=== PATIENT | female | born 1955 | race Caucasian/White ===

== ENCOUNTER → 2016-06-20 | Outpatient (CLI) | payer BC ==
[~2016-06-20] MED LIST: ADVIL200 MG PO; ALEVE 220MG220 MG PO; ESTRACE 1MG1 MG/TAB PO; ESTROGENS0.625 MG PO; EXCEDRIN TENSIO1 TAB PO; NO HOME MEDICATIONS; PROMETHAZINE12.5 M5 PO; ULTRAM 50MG TAB50 MG PO; VITAMIN D 1001000 IU PO
== END ==
LOC: MC.RAD 10:20
DX: Z12.31 Encounter for screening mammogram for malignant neoplasm of breast (principal)

== ENCOUNTER 2016-09-30 07:22 | Day surgery (SDC) | payer BC ==
[~2016-09-30] VITALS: Ht 180.3 cm; Wt 68.8 kg
[2016-09-30] VITALS (17 sets, daily range): BP systolic 89–137; BP diastolic 59–104; PULSE 16–70; TEMP 97.6
[~2016-09-30 07:22] MED LIST changes: -ADVIL200 MG PO; -EXCEDRIN TENSIO1 TAB PO; -VITAMIN D 1001000 IU PO
[2016-09-30] MEDS ORDERED: VITAMIN D 1001000 IU PO (08:08)
[2016-09-30] MEDS ORDERED: EXCEDRIN TENSIO1 TAB PO (08:09)
[2016-09-30] MEDS ORDERED: ADVIL200 MG PO (08:10)
== END 2016-09-30 16:40 | disposition home or self-care (01) ==
LOC: SDCO 07:22
DX: K21.9 Gastro-esophageal reflux disease without esophagitis (principal); K25.7 Chronic gastric ulcer without hemorrhage or perforation; K44.9 Diaphragmatic hernia without obstruction or gangrene; D64.9 Anemia, unspecified; K29.30 Chronic superficial gastritis without bleeding; Z90.710 Acquired absence of both cervix and uterus; Z80.0 Family history of malignant neoplasm of digestive organs; Z83.71 Family history of colonic polyps
CPT/HCPCS: OP; J2250; J2405; J2550; J3010; J7030

== ENCOUNTER 2017-09-19 10:56 | Emergency (ER) | payer BC ==
[~2017-09-19] VITALS: Ht 175.3 cm; Wt 68.2 kg
[~2017-09-19 10:56] MED LIST changes: +ADVIL200 MG PO; +EXCEDRIN TENSIO1 TAB PO; +VITAMIN D 1001000 IU PO
[2017-09-19 11:01] VITALS: TEMP 97.5
[2017-09-19 11:30] LABS: BASO # 0.1 (0.0-0.2); BASO % 0.8 % (0.0-2.0); EOS # 0.1 (0.0-0.7); EOS % 0.9 % (0-4.0); GRAN # 5.6 (1.4-6.5); GRAN % 73.4 % (42.2-75.2); HEMATOCRIT 42.8 % (37.0-47.0); HEMOGLOBIN 14.5 g/dl (12.5-16.0); LYMPH # 1.4 (1.2-3.4); LYMPH % 18.4 % (20.0-51.0); MEAN CELL VOLUME 86 fl (80.0-100.0); MEAN CORPUSCULAR HEMOGLOBIN 29 pg (27.0-31.0); MEAN CORPUSCULAR HGB CONC 34 g/dl (33.0-37.0); MEAN PLATELET VOLUME 9.4 fl (7.4-10.4); MONO # 0.4 (0.1-0.6); MONO % 5.8 % (1.7-9.3); PLATELET COUNT 294 K/mm3 (130-400); RED BLOOD COUNT 4.98 M/mm3 (4.10-5.30); REDCELL DISTRIBUTION WIDTH-CV 12.9 % (11.5-14.5)
[2017-09-19 11:37] LABS: ALBUMIN 4.2 gm/dL (3.5-5.0); BILIRUBIN,TOTAL 0.8 mg/dL (0.0-1.0); CALCIUM 9.8 mg/dL (8.4-10.2); CREATININE, serum 0.85 mg/dL (0.52-1.25); POTASSIUM 3.8 mmol/L (3.4-5.0); TOTAL PROTEIN 8.1 gm/dL (6.4-8.2)
[2017-09-19] MEDS ORDERED: ANTIVERT 25MG25 MG PO (13:40)
[2017-09-19 13:58] VITALS: BP 101/77; PULSE 64
== END 2017-09-19 13:59 | disposition home or self-care (01) ==
LOC: COL.ER 10:56
PROVIDERS: Emergency Medicine
DX: R00.2 Palpitations (principal); R42 Dizziness and giddiness; Z79.1 Long term (current) use of non-steroidal anti-inflammatories (NSAID)
CPT/HCPCS: J2405

== ENCOUNTER → 2017-10-02 | Outpatient (CLI) | payer BC ==
[~2017-10-02] MED LIST changes: +ANTIVERT 25MG25 MG PO
== END ==
LOC: MC.RAD 08-24 14:00
DX: Z12.31 Encounter for screening mammogram for malignant neoplasm of breast (principal)

== ENCOUNTER 2018-03-24 16:41 | Emergency (ER) | payer BC ==
[~2018-03-24] VITALS: Ht 180.3 cm; Wt 59.5 kg
[2018-03-24 16:47] VITALS: TEMP 97.4
[2018-03-24 17:33] LABS: BASO # 0.1 (0.0-0.2); BASO % 0.7 % (0.0-2.0); EOS # 0.1 (0.0-0.7); EOS % 0.7 % (0-4.0); GRAN % 71.7 % (42.2-75.2); HEMATOCRIT 43.3 % (37.0-47.0); HEMOGLOBIN 14.3 g/dl (12.5-16.0); LYMPH # 1.4 (1.2-3.4); LYMPH % 20.4 % (20.0-51.0); MEAN CELL VOLUME 90 fl (80.0-100.0); MEAN CORPUSCULAR HEMOGLOBIN 30 pg (27.0-31.0); MEAN CORPUSCULAR HGB CONC 33 g/dl (33.0-37.0); MEAN PLATELET VOLUME 9.2 fl (7.4-10.4); MONO # 0.4 (0.1-0.6); MONO % 5.9 % (1.7-9.3); PLATELET COUNT 281 K/mm3 (130-400); RED BLOOD COUNT 4.79 M/mm3 (4.10-5.30); REDCELL DISTRIBUTION WIDTH-CV 12.7 % (11.5-14.5)
[2018-03-24 17:46] LABS: ALANINE AMINOTRANSFERASE 22 U/L (9-52); ALBUMIN 4.1 gm/dL (3.5-5.0); ALKALINE PHOSPHATASE 23 U/L (50-136); ANION GAP 7 mmol/L (7-16); AST,SGOT 20 U/L (15-37); BILIRUBIN,TOTAL 0.9 mg/dL (0.0-1.0); BLOOD UREA NITROGEN 14 mg/dL (7-17); CALCIUM 9.4 mg/dL (8.4-10.2); CARBON DIOXIDE 27 mmol/L (22-30); CHLORIDE 105 mmol/L (98-107); CREATININE, serum 0.85 mg/dL (0.52-1.25); GLUCOSE 91 mg/dL (74-106); POTASSIUM 3.6 mmol/L (3.4-5.0); SODIUM 139 mmol/L (137-145); TOTAL PROTEIN 7.3 gm/dL (6.4-8.2)
[2018-03-24 17:56] LABS: TROPONIN-I < 0.012 ng/mL (0.000-0.034)
[2018-03-24] MEDS ORDERED: PROMETHAZINE12.5 M5 PO (20:44)
[2018-03-24 20:49] VITALS: BP 133/84; PULSE 68
[2018-03-25 13:24] LABS: COLLECTION METHOD CLEAN CATCH
[2018-03-25 13:30] LABS: PH 7 (5-8); SQUAMOUS EPITHELIAL 0-2 /hpf; URINE APPEARANCE Clear; URINE BACTERIA None Seen /hpf; URINE BILIRUBIN Negative (NEGATIVE); URINE BLOOD Negative (NEGATIVE); URINE COLOR Straw; URINE GLUCOSE Negative (NEGATIVE); URINE KETONE Negative (NEGATIVE); URINE LEUKOCYTE ESTERASE Negative (NEGATIVE); URINE NITRATE Negative (NEGATIVE); URINE PROTEIN(semi-quant) Negative (NEGATIVE); URINE RBC 0-2 /hpf; URINE UROBILINOGEN Negative (NEGATIVE)
== END 2018-03-24 20:58 | disposition home or self-care (01) ==
LOC: COL.ER 16:41
PROVIDERS: Emergency Medicine
DX: R42 Dizziness and giddiness (principal); K21.9 Gastro-esophageal reflux disease without esophagitis; Z90.49 Acquired absence of other specified parts of digestive tract; Z98.890 Other specified postprocedural states
CPT/HCPCS: J2550; J7030

== ENCOUNTER → 2018-03-26 | Outpatient (CLI) | payer BC | LOC: COL.RAD 09:06 | DX: R42 Dizziness and giddiness (principal) | CPT/HCPCS: A9585 ==

== ENCOUNTER → 2018-10-03 | Outpatient (CLI) | payer BC | LOC: MC.RAD 11:40 | DX: Z12.31 Encounter for screening mammogram for malignant neoplasm of breast (principal); N64.89 Other specified disorders of breast; Z98.890 Other specified postprocedural states ==

== ENCOUNTER → 2018-10-08 | Outpatient (CLI) | payer BC | LOC: MC.RAD 08:00 | DX: R92.2 Inconclusive mammogram (principal) ==

== ENCOUNTER → 2018-10-10 | Outpatient (CLI) | payer BC | LOC: MC.RAD 08:15 | DX: R92.2 Inconclusive mammogram (principal) | CPT/HCPCS: G0279 ==

== ENCOUNTER 2018-10-26 08:24 | Day surgery (SDC) | payer BC ==
[~2018-10-26] VITALS: Ht 180.3 cm; Wt 59.0 kg
[2018-10-26] MEDS ORDERED: WOMEN'S DAILY1 TAB PO (08:50)
[2018-10-26 09:06] VITALS: BP 125/84; PULSE 81; TEMP 97.6
[2018-10-26 09:55] VITALS: BP 116/82; PULSE 61; TEMP 97.7
--- NOTE | 2018-10-26 09:55 | NUR ---
Patient brought back to [facility]. Alert and oriented, ambulated to chair with one assist. States she feels sleepy, denies pain or nausea. at bedside. Vital signs stable. Provided few sips of water. Tolerated well. Will continue to monitor.
[2018-10-26 10:10] VITALS: BP 122/90; PULSE 58
--- NOTE | 2018-10-26 10:10 | NUR ---
Patient states she is feeling well, but still feels sleepy. Tolerating water well. Requesting crackers at this time. Vitals remain stable. Will continue to monitor.
[2018-10-26 10:25] VITALS: BP 120/80; PULSE 65
--- NOTE | 2018-10-26 10:25 | NUR ---
Patient states she is feeling well and ready to go home. Vital signs stable. Will continue to monitor.
--- NOTE | 2018-10-26 10:45 | NUR ---
Discharge instructions reviewed with patient and , verbalized understanding. IV removed tolerated well. Patient to get dressed at this time.
--- NOTE | 2018-10-26 10:50 | NUR ---
Patient brought down to lobby via wheel chair. To be driven home by patients Bronson.
== END 2018-10-26 10:50 | disposition home or self-care (01) ==
LOC: SDCO 08:24
DX: Z12.11 Encounter for screening for malignant neoplasm of colon (principal); K21.9 Gastro-esophageal reflux disease without esophagitis; G89.29 Other chronic pain; M19.90 Unspecified osteoarthritis, unspecified site; R51 Headache; Z83.71 Family history of colonic polyps; Z80.0 Family history of malignant neoplasm of digestive organs; Z88.1 Allergy status to other antibiotic agents; Z90.710 Acquired absence of both cervix and uterus
CPT/HCPCS: J2405; J2704; J7030

== ENCOUNTER → 2019-03-25 | Outpatient (CLI) | payer BC, OTHER ==
[~2019-03-25] MED LIST changes: +WOMEN'S DAILY1 TAB PO
== END ==
LOC: MC.RAD 13:58
DX: R92.8 Other abnormal and inconclusive findings on diagnostic imaging of breast (principal)

== ENCOUNTER → 2020-01-15 | Outpatient (CLI) | payer MEDICARE | LOC: MC.RAD 13:48 | DX: Z12.31 Encounter for screening mammogram for malignant neoplasm of breast (principal) ==

== ENCOUNTER 2020-08-20 13:49 | Inpatient (IN) | payer MEDICARE ==
[2020-08-20] VITALS (299 sets, daily range): BP systolic 84–122; BP diastolic 69–86; PULSE 80–118; TEMP 97.6–98.4; O2SAT 87–100
[~2020-08-20] VITALS: Ht 172.7 cm; Wt 71.2 kg
[~2020-08-20 13:49] MED LIST changes: -VITAMIN D 1001000 IU PO; +VITAMIND3 5000 PO
[2020-08-20 14:17] LABS: BASO # 0.1 (0.0-0.2); BASO % 0.8 % (0.0-2.0); EOS # 0.1 (0.0-0.7); EOS % 1.9 % (0-4.0); GRAN # 4.8 (1.4-6.5); GRAN % 65.5 % (42.2-75.2); HEMATOCRIT 43.4 % (37.0-47.0); HEMOGLOBIN 14.7 g/dl (12.5-16.0); LYMPH # 1.8 (1.2-3.4); LYMPH % 24.6 % (20.0-51.0); MEAN CELL VOLUME 86 fl (80.0-100.0); MEAN CORPUSCULAR HEMOGLOBIN 29 pg (27.0-31.0); MEAN CORPUSCULAR HGB CONC 34 g/dl (33.0-37.0); MEAN PLATELET VOLUME 9.8 fl (7.4-10.4); MONO # 0.5 (0.1-0.6); MONO % 6.7 % (1.7-9.3); PLATELET COUNT 159 K/mm3 (130-400); RED BLOOD COUNT 5.05 M/mm3 (4.10-5.30); REDCELL DISTRIBUTION WIDTH-CV 13.2 % (11.5-14.5)
[2020-08-20 14:28] LABS: ALANINE AMINOTRANSFERASE 21 U/L (4-34); ALBUMIN 4.3 gm/dL (3.5-5.0); ALKALINE PHOSPHATASE 32 U/L (50-136); ANION GAP 9 mmol/L (7-16); AST,SGOT 30 U/L (15-37); BILIRUBIN,TOTAL 0.8 mg/dL (0.0-1.0); BLOOD UREA NITROGEN 15 mg/dL (7-17); CALCIUM 9.6 mg/dL (8.4-10.2); CARBON DIOXIDE 18 mmol/L (22-30); CHLORIDE 110 mmol/L (98-107); CREATININE, serum 0.84 (0.52-1.25); GLUCOSE 146 mg/dL (74-106); POTASSIUM 3.5 mmol/L (3.4-5.0); SODIUM 137 mmol/L (137-145); TOTAL PROTEIN 7.7 gm/dL (6.4-8.2)
[2020-08-20 14:30] LABS: PROTHROMBIN TIME 10.6 SECONDS (9.7-12.8)
[2020-08-20 14:32] LABS: PARTIAL THROMBOPLASTIN TIME 30.8 SECONDS (26.0-37.0)
[2020-08-20 14:50] LABS: TROPONIN-I < 0.012 ng/mL (0.000-0.035)
[2020-08-20] MEDS ORDERED: VTAMINC250TA PO (15:46)
--- NOTE | 2020-08-20 16:00 | NUR ---
PATIENT ARRIVED FROM ER VIA CART. AMBULATED TO BED WITHOUT DIFFICULTY. ALERT AND ORIENTED. HISTORY AND MEDS REVIEWED. PLACED ON MONITORS, A-FIB, HEART SOUNDS IRREGULAR, LUNG SOUNDS CLEAR, BOWEL SOUNDS ACTIVE. IV INFUSING TO BILATERAL AC WITHOUT DIFFICULTY. CALL MARTINES WITHIN REACH, WARM BLANKET PROVIDED, WILL CONTINUE TO MONITOR.
--- NOTE | 2020-08-20 17:00 | NUR ---
PATIENT FLIPPED INTO NSR, MD MADE AWARE. MD MADE AWARE OF POTASSIUM OF 3.5 AND LACK OF MAGNESIUM LEVEL
--- NOTE | 2020-08-20 20:00 | NUR ---
PATIENT RESTING COMFORTABLE ON COT/ DENIES DISCOMFORT/DA1EUAIS ABOUT PLAPATATIONS COMING/REASURANCE GIVEN
[2020-08-21] VITALS (244 sets, daily range): BP systolic 106–136; BP diastolic 56–77; PULSE 60–65; TEMP 97.8–98.4; O2SAT 90–99
[2020-08-21 06:12] LABS: BASO # 0.1 (0.0-0.2); BASO % 0.8 % (0.0-2.0); EOS # 0.2 (0.0-0.7); EOS % 2.8 % (0-4.0); GRAN # 4.5 (1.4-6.5); GRAN % 60.9 % (42.2-75.2); LYMPH # 2.1 (1.2-3.4); LYMPH % 28.1 % (20.0-51.0); MEAN CELL VOLUME 90 fl (80.0-100.0); MEAN CORPUSCULAR HEMOGLOBIN 29 pg (27.0-31.0); MEAN CORPUSCULAR HGB CONC 33 g/dl (33.0-37.0); MEAN PLATELET VOLUME 9.5 fl (7.4-10.4); MONO # 0.5 (0.1-0.6); PLATELET COUNT 242 K/mm3 (130-400); RED BLOOD COUNT 4.23 M/mm3 (4.10-5.30); REDCELL DISTRIBUTION WIDTH-CV 13.4 % (11.5-14.5)
[2020-08-21 06:15] LABS: HEMOGLOBIN 12.4 g/dl (12.5-16.0)
[2020-08-21 06:27] LABS: ANION GAP 1 mmol/L (7-16); BLOOD UREA NITROGEN 12 mg/dL (7-17); CALCIUM 8.3 mg/dL (8.4-10.2); CARBON DIOXIDE 25 mmol/L (22-30); CHLORIDE 109 mmol/L (98-107); CREATININE, serum 0.72 (0.52-1.25); GLUCOSE 88 mg/dL (74-106); POTASSIUM 3.8 mmol/L (3.4-5.0)
[2020-08-21 06:39] LABS: TROPONIN-I < 0.012 ng/mL (0.000-0.035)
[2020-08-21 07:29] LABS: SODIUM 138 mmol/L (137-145)
[2020-08-21 09:26] LABS: MAGNESIUM 2.1 mg/dL (1.6-2.3)
[2020-08-21] MEDS ORDERED: TAMBOCOR 1100 MG/TAB PO (10:15)
[2020-08-21] MEDS ORDERED: ZEBETA 5MG5 MG PO (10:36)
[2020-08-21] MEDS ORDERED: ELIQUIS 5MG PO (11:13)
== END 2020-08-21 12:09 | disposition home or self-care (01) | DRG 310 ==
LOC: COL.ER 13:49 → ICU 15:02
PROVIDERS: Family Medicine; Physician Assistant; ADMIT Internal Medicine
DX: I48.0 Paroxysmal atrial fibrillation (principal); Z90.710 Acquired absence of both cervix and uterus; Z98.51 Tubal ligation status
CPT/HCPCS: 99223-AI; 99239; J1644; J2060; J7030

== ENCOUNTER 2020-10-13 06:01 | Day surgery (SDC) | payer MEDICARE ==
[~2020-10-13] VITALS: Ht 172.7 cm; Wt 70.9 kg
[2020-10-13] VITALS (10 sets, daily range): BP systolic 85–125; BP diastolic 56–82; PULSE 45–65; TEMP 97.8
[~2020-10-13 06:01] MED LIST changes: +ELIQUIS 5MG PO; +TAMBOCOR 1100 MG/TAB PO; +VTAMINC250TA PO; +ZEBETA 5MG5 MG PO
[2020-10-13] MEDS ORDERED: ZEBETA 5MG5 MG PO (06:15)
[2020-10-13] MEDS ORDERED: ASPIRIN E.C. 8181 MG PO (06:18)
[2020-10-13] MEDS ORDERED: B-12 500 MCG PO (06:44)
[2020-10-13 06:52] LABS: HEMATOCRIT 40.1 % (37.0-47.0); HEMOGLOBIN 13.3 g/dl (12.5-16.0); MEAN CELL VOLUME 89 fl (80.0-100.0); MEAN CORPUSCULAR HEMOGLOBIN 30 pg (27.0-31.0); MEAN CORPUSCULAR HGB CONC 33 g/dl (33.0-37.0); MEAN PLATELET VOLUME 9.2 fl (7.4-10.4); PLATELET COUNT 276 K/mm3 (130-400); REDCELL DISTRIBUTION WIDTH-CV 13.2 % (11.5-14.5)
[2020-10-13 07:00] LABS: PROTHROMBIN TIME 11.1 SECONDS (9.7-12.8)
[2020-10-13 07:02] LABS: PARTIAL THROMBOPLASTIN TIME 31.1 SECONDS (26.0-37.0)
[2020-10-13 07:03] LABS: CALCIUM 9.3 mg/dL (8.4-10.2); CREATININE, serum 0.87 (0.52-1.25); POTASSIUM 3.8 mmol/L (3.4-5.0)
[2020-10-13] MEDS ORDERED: TAMBOCOR50 MG PO (09:35)
--- NOTE | 2020-10-13 09:35 | NUR ---
PT BACK FROM [employer]. REPORT FROM СЕРГЕЙ RUTLEDGE. PT IS VERY DROWSY, GCS 14, PWD, RESP REG AND UNLABORED. NSR ON MONITOR. TR BAND TO RT WRIST, CMS INTACT DISTAL. PT'S DAUGHTER IS AT BS. POC REVIEWED. CALL LIGHT IN REACH.
[2020-10-13] MEDS ORDERED: EPA FISH OIL1000 MG PO (10:22)
--- NOTE | 2020-10-13 12:31 | NUR ---
PT'S DAUGHTER CALLED TO REPORT MONITOR ANTOHNY KAMARA RN NOTED HYPOTENSION DR. REYES NOTIFIED OF SBP 85. VERBAL ORDER FOR FLUID BOLUS. 1/2 NS OPENED WIDE. PT HAS BEEN SLEEPING, AROUSABLE TO VOICE, RT RADIAL SITE LOOKS GOOD. NO CHANGES/
--- NOTE | 2020-10-13 12:57 | NUR ---
TR BAND DEFLATED WITH NO PROBLEM. SITE DRESSED WITH BANDAID, FOLDED 2X2 AND COBAN. CMS REMAINS INTACT DISTAL. WE HAVE REVIEWED DC/FU AND RX INSTRUCTIONS. PT AND DAUGHTER VERBALIZE UNDERSTANDING. PT IS UP AND AMB IN ROOM WITH STEADY GAIT. IV DC'D WTIH CATH INTACT, DRESSING APPLIED. TO EXIT VIA WHEELCHAIR.
== END 2020-10-13 17:54 | disposition home or self-care (01) ==
LOC: COL.CAR 06:01
PROVIDERS: Internal Medicine Cardiovascular Disease
DX: I49.9 Cardiac arrhythmia, unspecified (principal); R94.39 Abnormal result of other cardiovascular function study; R07.9 Chest pain, unspecified; I48.91 Unspecified atrial fibrillation; I08.1 Rheumatic disorders of both mitral and tricuspid valves; Z20.822 Contact with and (suspected) exposure to COVID-19
CPT/HCPCS: C1769; J1644; J2250; J2405; J3010; Q9967

== ENCOUNTER 2021-01-31 09:04 | Emergency (ER) | payer MEDICARE ==
[~2021-01-31] VITALS: Ht 175.3 cm; Wt 68.2 kg
[~2021-01-31 09:04] MED LIST changes: +ASPIRIN E.C. 8181 MG PO; +B-12 500 MCG PO; +EPA FISH OIL1000 MG PO; +TAMBOCOR50 MG PO
[2021-01-31 09:36] LABS: BASO # 0.1 K/mm3 (0.0-0.2); EOS # 0.1 K/mm3 (0.0-0.7); EOS % 1.3 % (0-4.0); GRAN # 3.7 K/mm3 (1.4-6.5); HEMATOCRIT 42.9 % (37.0-47.0); HEMOGLOBIN 14.6 g/dl (12.5-16.0); INR 1.1 (0.8-3.0); LYMPH # 2.1 K/mm3 (1.2-3.4); LYMPH % 31.8 % (20.0-51.0); MEAN CELL VOLUME 87 fl (80.0-100.0); MEAN CORPUSCULAR HEMOGLOBIN 30 pg (27.0-31.0); MEAN CORPUSCULAR HGB CONC 34 g/dl (33.0-37.0); MEAN PLATELET VOLUME 9.2 fl (7.4-10.4); MONO # 0.6 K/mm3 (0.1-0.6); MONO % 9.6 % (1.7-9.3); PLATELET COUNT 319 K/mm3 (130-400); PROTHROMBIN TIME 12.1 SECONDS (9.7-12.8); RED BLOOD COUNT 4.94 M/mm3 (4.10-5.30); REDCELL DISTRIBUTION WIDTH-CV 12.9 % (11.5-14.5)
[2021-01-31 09:39] LABS: PARTIAL THROMBOPLASTIN TIME 38.1 SECONDS (26.0-37.0)
[2021-01-31 09:49] LABS: ALANINE AMINOTRANSFERASE 18 U/L (0-55); ALBUMIN 4.3 gm/dL (3.4-4.8); ALKALINE PHOSPHATASE 18 U/L (40-150); ANION GAP 16 mmol/L (7-16); AST,SGOT 21 U/L (5-34); BILIRUBIN,TOTAL 0.8 mg/dL (0.2-1.2); BLOOD UREA NITROGEN 19 mg/dL (10-20); CALCIUM 10.9 mg/dL (8.4-10.2); CARBON DIOXIDE 21 mmol/L (23-31); CHLORIDE 103 mmol/L (98-107); CREATININE, serum 1.09 mg/dL (0.57-1.11); GLUCOSE 106 mg/dL (70-99); POTASSIUM 3.9 mmol/L (3.5-4.5); SODIUM 140 mmol/L (136-145); TOTAL PROTEIN 8.1 gm/dL (6.2-8.1)
[2021-01-31 10:29] LABS: TROPONIN-I < 0.010 ng/mL (0.00-0.033)
[2021-01-31] MEDS ORDERED: CARDIZEM120 MG PO ×2 (12:57)
[2021-01-31] MEDS ORDERED: CARDIZEM 60MG T60 MG PO ×2 (14:05→15:00)
[2021-01-31 15:04] VITALS: BP 110/64; PULSE 80
== END 2021-01-31 15:10 | disposition other institution (70) ==
LOC: COL.ER 09:04
PROVIDERS: Family Medicine
DX: I48.20 Chronic atrial fibrillation, unspecified (principal); M41.9 Scoliosis, unspecified; Z79.82 Long term (current) use of aspirin
CPT/HCPCS: J2250; J2704; J7030

== ENCOUNTER → 2021-02-04 | Outpatient (CLI) | payer MEDICARE ==
[~2021-02-04] MED LIST changes: +CARDIZEM 60MG T60 MG PO; +CARDIZEM120 MG PO
== END ==
LOC: MC.RAD 09:45
DX: Z12.31 Encounter for screening mammogram for malignant neoplasm of breast (principal); N63.20 Unspecified lump in the left breast, unspecified quadrant

== ENCOUNTER → 2021-02-08 | Outpatient (CLI) | payer MEDICARE | LOC: MC.RAD 10:51 | DX: R59.0 Localized enlarged lymph nodes (principal); N63.10 Unspecified lump in the right breast, unspecified quadrant ==

== ENCOUNTER → 2021-02-23 | Outpatient (CLI) | payer MEDICARE | LOC: ZCOL.LAB 10:15 | DX: Z01.812 Encounter for preprocedural laboratory examination (principal); Z20.822 Contact with and (suspected) exposure to COVID-19 ==

== ENCOUNTER 2021-07-30 07:27 | Day surgery (SDC) | payer MEDICARE ==
[~2021-07-30] VITALS: Ht 175.3 cm; Wt 70.5 kg
[2021-07-30 07:53] VITALS: BP 115/81; PULSE 88; TEMP 97.6
[2021-07-30] MEDS ORDERED: PRILOSEC 20MG20 MG PO (08:00)
[2021-07-30] MEDS ORDERED: ELIQUIS 5MG PO (08:02)
[2021-07-30 09:20] VITALS: BP 106/76; PULSE 84; TEMP 98.2
[2021-07-30 09:35] VITALS: BP 124/83; PULSE 68
[2021-07-30 09:50] VITALS: BP 112/80; PULSE 71; TEMP 98.3
[2021-07-30 10:15] VITALS: BP 110/78; PULSE 70
--- NOTE | 2021-07-30 10:20 | NUR ---
patient finished up with EGD/Colon at this time, she is alert/oriented, vital signs stable, she is still feeling a little nauseated but no vomitting, will continue to monitor
--- NOTE | 2021-07-30 10:22 | NUR ---
tolerating PO liquids, nausea resolving
--- NOTE | 2021-07-30 10:22 | NUR ---
patient doing well, vital signs remain stalbe, nausea resolve and tolerating PO intake without issues, has been by to discuss procedural findings, I have went over discharge instruction, removed IV and she is geting dressed and calling her ride home, I will escort her out when her ride arrives
== END 2021-07-30 10:24 | disposition home or self-care (01) ==
LOC: SDCO 07:27
DX: Z12.11 Encounter for screening for malignant neoplasm of colon (principal); K21.00 Gastro-esophageal reflux disease with esophagitis, without bleeding; Z80.0 Family history of malignant neoplasm of digestive organs; Z83.71 Family history of colonic polyps
CPT/HCPCS: 43239; G0105; J2405; J2704; J7120

== ENCOUNTER → 2023-04-11 | Outpatient (CLI) | payer MEDICARE ==
[2006-01-13 11:00] VITALS: BP 105/61; PULSE 57; TEMP 97.8
[~2023-04-11] MED LIST changes: +MANUKA HONEY PO; +MULTIVITAMIN200 MCG PO; +PRILOSEC 20MG20 MG PO; +PROBIOTIC BLEN1 EACH PO; +VITAMINC250CH PO; -VTAMINC250TA PO; -WOMEN'S DAILY1 TAB PO
== END ==
LOC: MC.RAD 12:45
DX: Z12.31 Encounter for screening mammogram for malignant neoplasm of breast (principal)